=== PATIENT | male | born 1955 | race Caucasian/White ===

== ENCOUNTER → 2020-06-29 13:40 | Outpatient (CLI) | payer OTHER, SELFPAY ==
--- NOTE | ~2020-06-29 | CT_ITS ---
EXAMINATION: CT abdomen pelvis w con EXAM DATE: 06/29/2020 14:12 INDICATION: Low abdominal pain, swelling at pubic bone area. History of throat and lung cancer. TECHNIQUE: Spiral CT of the abdomen and pelvis was performed following intravenous injection of 100 m L Omnipaque 350. Axial, coronal and sagittal images were reviewed. The dose-length product (DLP) fo r this examination was 410.55 mGy-cm. The exposure was tailored according to patient size (auto mA e xposure control), and iterative reconstruction (ASIR) was used as additional dose reduction technique . Comparison is made to prior examination from 10/08/2010. FINDINGS: There is moderate basilar emphysema and evidence of significant hyperinflation. Pancreatic head and body calcifications could indicate chronic pancreatitis, however there are scattered simila r-appearing calcifications throughout the retroperitoneum, lower thoracic paraspinal region, and ingu inal region, probably small calcified lymph nodes from prior granulomatous process. Liver, spleen, adrenal glands are unremarkable. Gallbladder is unremarkable. No biliary obstruction . Portal and splenic veins are patent. Kidneys enhance symmetrically. There is no hydronephrosis. Tiny splenule. The prostate is unremarkable. The bladder is unremarkable. There is no retroperiton eal or pelvic lymphadenopathy. There is mild scattered arteriosclerotic disease. Small bilateral in guinal fat-containing hernias. The appendix is normal. The stomach and small bowel are unremarkable. There is expected amount of c olonic stool. There is mild scattered colonic diverticulosis. There is no adjacent inflammatory de souza ge to suggest diverticulitis. The heart is normal in size. There are no pericardial or pleural effus ions. There are no osteoblastic or osteolytic lesions identified. The pubic region is unremarkable. IMPRESSION: 1. Small inguinal fat-containing hernias. The pubic region otherwise unremarkable. 2. Mild scattered colonic diverticulosis. 3. Chronic pancreatitis. 4. Hyperinflation and emphysema. Reviewed, dictated and finalized at location A. OGRAPHIC SURVEYOR IMPRESSION: 1. Small inguinal fat-containing hernias. The pubic region otherwise unremarka ble. 2. Mild scattered colonic diverticulosis. 3. Chronic pancreatitis. 4. Hyperinflation and emphysema.
[2020-06-29 14:00] LABS: Estimated Glomerular Filt Rate > 60
== END ==
PROVIDERS: PCP Family Medicine; Visit Provider Family Medicine
DX: R10.30 Lower abdominal pain, unspecified (principal); K40.90 Unilateral inguinal hernia, without obstruction or gangrene, not specified as recurrent; K57.90 Diverticulosis of intestine, part unspecified, without perforation or abscess without bleeding; R91.8 Other nonspecific abnormal finding of lung field; J43.9 Emphysema, unspecified
CPT/HCPCS: 74177; Q9967